=== PATIENT | female | born 1980 | race Caucasian/White ===

== ENCOUNTER 2019-10-09 22:14 | Emergency (ER) | payer BC ==
[~2019-10-09] VITALS: Ht 167.6 cm; Wt 71.2 kg
[~2019-10-09 22:14] MED LIST: DOLOPHINE HCL5 MG PO; EFFEXOR37.5 MG PO; MIRENA; REQUIP 0.25 M0.25 MG PO; VITAMIN D2400 UNIT PO
[2019-10-10 04:31] VITALS: BP 100/64
--- NOTE | 2019-10-11 08:57 | P ---
[facility] [address] [address] PROCEDURE REPORT Name: AMADO FRANCO Room #: DEP [facility] [id number] Admission: 10/09/19 Attend Phys: Discharge: 10/10/19 Date of : 78 Report #: [id number] THIS REPORT FOR: cc: Patricio De León MD, [place] S. MD Thesing, John A. MD ~ CC: Edgar De León MD OUTPATIENT UPPER ENDOSCOPY BRIEF HISTORY: The patient is a 39-year-old woman with prior history of solid food dysphagia with food bolus obstruction in esophagus with previous food bolus removed emergently 5 years ago. She presents with food bolus obstruction in esophagus after eating chicken and biscuits earlier today. PREOPERATIVE DIAGNOSIS: Food bolus obstruction in esophagus and poorly controlled reflux disease. POSTOPERATIVE DIAGNOSES: 1. Food bolus obstruction in esophagus. 2. Mild esophagitis consistent with food bolus obstruction in esophagus. 3. Mild erythematous gastritis without ulceration. MEDICATIONS: Deep sedation with propofol per anesthesia. SPECIMENS: 1. Biopsies of gastritis, rule out Helicobacter pylori. 2. Biopsy of esophagus, rule out eosinophilic esophagitis. ESTIMATED BLOOD LOSS: 3 mL. PROCEDURES: EGD with biopsy, removal of food bolus obstruction in esophagus and esophageal dilation. FINDINGS: Prior to propofol sedation, procedure of upper endoscopy was discussed with the patient as well as potential risks and its complications. She indicates she understands and desires to proceed. Due to the fact that she was unable to handle her own secretions and was sitting there with a partially filled emesis bag filled with oral secretions, intubation was undertaken for the procedure. PROCEDURE IN DETAILS: Once she was intubated, the Olympus video endoscope was inserted. She had a mouthful of oral secretions which were suctioned away. We were able to guide the scope into the esophagus and into the mid esophagus, there was fluid which was aspirated away. We cleared away all the fluid and at [facility] [address] [place] [address] PROCEDURE REPORT Name: AMADO FRANCO Room #: DEP SUZY Veras#: [id number] Admission: 10/09/19 Attend Phys: Discharge: 10/10/19 Date of : 78 Report #: [id number] the level of the GE junction, found a food bolus obstruction in esophagus. Gentle pressure on the food bolus did not dislodge it. We then used a Menon net and were able to place a [place] net around the food bolus and essentially retrieved almost completely the entire food bolus. However, as we withdrew the food bolus through the oropharynx, couple pieces of debris fell off. We then reinserted the scope into the oropharynx. We then, actually with biopsy forceps, retrieved multiple fragments of food debris. Upon further examination, it was felt the oropharynx was clear. We then reinserted the scope and did an upper endoscopic examination. The esophageal mucosa was intact. There were some suggestions of long furrows in the esophagus, raising the possibility of eosinophilic esophagitis. I did not see definite stricture or ring. The GE junction at the squamocolumnar junction area was a little edematous as expected. There was some very superficial erosion likely from the food bolus, but extensive ulceration, erosions or ulcers were not seen. A definite stricture or mass was not seen. A definite ring was not seen. A hiatus hernia was not seen. The scope was advanced in the stomach, which was examined on end view as well as retroflexed views. There was a pool of dark fluid, which was aspirated away. A small amount of debris remained. I also might point out there were a couple tiny fragments of the remaining food debris in the esophagus and these were pushed into the stomach. Upon retroflexion, no mass lesions were noted in the proximal stomach. Examination of distal stomach revealed erythematous gastritis, but no ulcers, erosions or bleeding. It is noted the patient does use a nonsteroidal of some sort for back disk disease. Again, no ulcers or erosions were seen, but biopsies obtained to exclude H. pylori, which may increase her risk of ulcer disease ____ nonsteroidals. The pylorus was unremarkable. Duodenal bulb was unremarkable. Postbulbar duodenal sweep was unremarkable. At that point, the scope was slowly withdrawn and careful circumferential views confirmed the above finding. Subsequently, she was dilated with passage of 50-[place] dilator. There was no resistance. CONDITION OF THE PATIENT UPON DISCHARGE: Following procedure, the patient remained intubated. She will be extubated shortly and then will be discharged home when fully ambulatory. INSTRUCTIONS TO THE PATIENT AND FAMILY AT THE TIME OF DISCHARGE: The patient has reflux symptoms. These have been poorly controlled. We will have her use pantoprazole 40 mg daily. Also, she is to return for followup to make sure that her symptoms are well controlled. She does not require any further dilation. Also discussed long-term management of reflux symptoms with PPI therapy at followup. If she should develop any further symptoms of dysphagia, she may need [facility] [address] [place] [address] PROCEDURE REPORT Name: AMADO FRANCO Room #: DEP Rito#: [id number] Admission: 10/09/19 Attend Phys: Discharge: 10/10/19 Date of : 78 Report #: [id number] repeat dilation. If she does have eosinophilic esophagitis, she may benefit from additional therapy. <ELECTRONICALLY SIGNED> By: Franco Lee MD 10/11/19 [phone] Franco Lee MD /nt
--- NOTE | 2019-10-12 17:06 | PATH ---
[facility] [address] [place] [address] PATHOLOGY RPT PROCEDURE Name: AMADO FRANCO Room #: DEP Rito#: [id number] Admission: 10/09/19 Date of : 78 Discharge: 10/10/19 Report #: [id number] Path Case #: [id number] [facility] Accession Number: [id number] . 01 Material submitted: . PART A: stomach - BX OF GASTRITIS PART B: esophagus - BX OF ESOPHAGUS . 01 Clinical history: . Pre-op diagnosis: Food bolus Post-op diagnosis: Gastritis, foreign body removed A. R/O H. pylori B. R/O eosinophilic esophagitis Food stuck in throat and vomiting since 1400 . 02 Diagnosis: A. Gastric mucosa, gastritis rule out H. pylori, endoscopic biopsy: - Moderate reactive gastropathy. - Negative for intestinal metaplasia or atrophy. - Negative for Helicobacter pylori (properly-controlled immunohistochemical stain performed). . B. Squamous mucosa, esophagus rule out eosinophilic esophagitis, endoscopic biopsy: - Focal marked active esophagitis with numerous neutrophils. - No increase in eosinophils within the epithelium; negative for eosinophilic esophagitis. - Negative for intestinal metaplasia or dysplasia. . (IUV:mml; 10/12/2019) QLM 10/12/2019 1322 Local . 02 Comment: GMS fungal special stain is pending on part B and the findings will be reported in an addendum to follow. . (IUV:mml; 10/12/2019) . 02 Electronically signed: . Digna Oh MD, Pathologist NPI- [id number] . 01 Gross description: . A. The specimen is received in formalin, labeled "Amado Franco, biopsy gastritis". Received are three segments of pale mcclain soft tissue ranging in size from 0.4 to 0.5 cm in maximum dimensions. The specimen is submitted entirely in [place] [address] PATHOLOGY RPT PROCEDURE Name: AMADO FRANCO Room #: [facility]P [facility] [id number] Admission: 10/09/19 Date of : 78 Discharge: 10/10/19 Report #: [id number] Path Case #: [id number] . B. The specimen is received in formalin, labeled "Amado Franco, biopsy of esophagus, R/O EOE". Received are five segments of pale mcclain soft tissue ranging in size from 0.3 to 0.6 cm in maximum dimensions. The specimen is submitted entirely in cassette B1. (CAA; 10/11/2019) QAC/QAC 10/11/2019 1643 Local . 02 Pathologist provided ICD-10: K31.9, K29.70 . 02 CPT . 731438, 261232, U05251 Specimen Comment: A courtesy copy of this report has been sent to [phone] Specimen Comment: Report sent to Performed at: [address], [place] [id number] MD Domo Anguiano MD Phone: [phone] Performed at: [address] [id number] MD Digna Oh MD Phone: [phone]
== END 2019-10-10 04:31 | disposition home or self-care (01) ==
LOC: ER 22:14
DX: T18.128A Food in esophagus causing other injury, initial encounter (principal); R11.10 Vomiting, unspecified; F32.9 Major depressive disorder, single episode, unspecified; F41.9 Anxiety disorder, unspecified; Z98.890 Other specified postprocedural states; Z79.899 Other long term (current) drug therapy; X58.XXXA Exposure to other specified factors, initial encounter; Y93.89 Activity, other specified; Y92.89 Other specified places as the place of occurrence of the external cause; Y99.8 Other external cause status
CPT/HCPCS: 62110; 62900